=== PATIENT | female | born 1995 | race Caucasian/White ===

== ENCOUNTER 2017-09-06 01:30 | Emergency (ER) | payer OTHER ==
[~2017-09-06] VITALS: Ht 162.6 cm; Wt 60.8 kg
[2017-09-06 01:40] VITALS: Ht 162.6 cm; Wt 60.8 kg
[2017-09-06 06:19] LABS: BASOPHIL % 0.2 % (0-2); PLATELET COUNT 253 x10^3mcL (130-400); RED CELL DISTRIBUTION WIDTH 12.6 % (11.5-14.5)
[2017-09-06 06:20] LABS: microscopic required? YES; urine erythrocyte 2+ (NEGATIVE)
[2017-09-06 06:35] LABS: AMPHETAMINE QUAL UR NONE DETECTED (NEG <=1000)
[2017-09-06 06:39] LABS: CALCIUM 8.6 mg/dL (8.5-10.1); CARBON DIOXIDE 26.5 mmol/L (21-32); CHLORIDE SERUM 103 mmol/L (98-107); CREATININE SERUM 0.6 mg/dL (0.6-1.0); GFR1 > 60 mL/min; GLUCOSE SERUM 106 mg/dL (74-106); SODIUM SERUM 140 mmol/L (136-145)
[2017-09-06 06:47] LABS: ALBUMIN 4.1 g/dL (3.4-5.0); ALKALINE PHOSPHATASE 62 U/L (46-116); ALT/SGPT 17 U/L (14-59); AST/SGOT 17 U/L (15-37); BILIRUBIN TOTAL 0.8 mg/dL (0.20-1.00); FREE T4 1.11 ng/dL (0.76-1.46); LIPASE 80 IU/L (73-393); MAGNESIUM 2.2 mg/dL (1.8-2.4)
[2017-09-06 07:24] LABS: TOTAL PROTEIN, SERUM 8.3 g/dL (6.4-8.2)
[2017-09-06 09:35] VITALS: BP 120/74
== END 2017-09-06 09:35 | disposition home or self-care (01) ==
LOC: ED 01:30
PROVIDERS: Emergency Medicine
DX: G43.A1 Cyclical vomiting, in migraine, intractable (principal)
CPT/HCPCS: 84439; G0480; J2405; J7030